=== PATIENT | female | born 1960 | race Caucasian/White ===

== ENCOUNTER → 2017-03-02 | Outpatient (CLI) | payer OTHER | LOC: US 15:02 | DX: E04.1 Nontoxic single thyroid nodule (principal); E04.2 Nontoxic multinodular goiter | CPT/HCPCS: 76536 ==

== ENCOUNTER 2017-03-27 12:53 | Emergency (ER) | payer OTHER ==
[2017-03-27 14:15] LABS: BUN/CREATININE RATIO 20 (0-10)
[2017-03-27 15:07] LABS: HEMOGLOBIN 16.3 gm/dl (12.3-15.3); RED BLOOD COUNT 5.15 M/UL (4.00-5.10)
== END 2017-03-27 19:01 | disposition home or self-care (01) ==
LOC: ER1 12:53
PROVIDERS: Family Medicine
DX: R10.9 Unspecified abdominal pain (principal); G89.29 Other chronic pain; R19.7 Diarrhea, unspecified; R11.2 Nausea with vomiting, unspecified; F17.200 Nicotine dependence, unspecified, uncomplicated; Z90.49 Acquired absence of other specified parts of digestive tract; Z79.891 Long term (current) use of opiate analgesic
CPT/HCPCS: 36415; 80053; 81001; 82150; 83605; 83690; 85025; 96374; 96375; 99284; J2270; J2405; J7030

== ENCOUNTER 2017-03-28 11:35 | Emergency (ER) | payer OTHER ==
[2017-03-28 16:15] LABS: HEMOGLOBIN 14.6 gm/dl (12.3-15.3)
[2017-03-28 16:16] LABS: RED BLOOD COUNT 4.62 M/UL (4.00-5.10)
[2017-03-28 16:42] LABS: BUN/CREATININE RATIO 13 (0-10)
== END 2017-03-28 19:50 | disposition home or self-care (01) ==
LOC: ER1 11:35
PROVIDERS: Emergency Medicine
DX: I88.0 Nonspecific mesenteric lymphadenitis (principal)
CPT/HCPCS: 36415; 80053; 81001; 82550; 82553; 83605; 83690; 83874; 84484; 85025; 87086; 96361; 96374; 96375; 99284; J1885; J2405; J7030; J7050; Q9962

== ENCOUNTER → 2017-05-15 | Outpatient (CLI) | payer OTHER | LOC: CT 13:46 | DX: R10.31 Right lower quadrant pain (principal); R91.8 Other nonspecific abnormal finding of lung field | CPT/HCPCS: 74175; J7050; Q9963 ==